=== PATIENT | male | born 1965 | race Caucasian/White ===

== ENCOUNTER 2018-07-28 10:07 | Emergency (ER) | payer SELFPAY ==
[~2018-07-28] VITALS: Ht 177.8 cm; Wt 77.1 kg
[2018-07-28] MEDS ORDERED: LISINOPRIL-HCT1 EAC2 ORAL ×2 (10:21→10:38)
[2018-07-28] MEDS ORDERED: HYDROXYZINE PA100 MG ORAL (10:21)
[2018-07-28] MEDS ORDERED: CATAPRES0.1 MG ORAL (10:21)
[2018-07-28] MEDS ORDERED: TRUVADA1 TAB ORAL (10:21)
[2018-07-28] MEDS ORDERED: ATORVASTATIN CA10 MG ORAL (10:21)
[2018-07-28] MEDS ORDERED: MINOCIN50 MG PO (10:21)
[2018-07-28 10:22] VITALS: BP 142/94
--- NOTE | 2018-07-28 10:35 | Emergency Room Report ---
History of Present Illness General Chief Complaint: Hypertension Source: Patient Present Illness HPI CC: "My blood pressure." History of present illness: Mr. Mccarty is a very pleasant 53-year-old male who is currently in a drug rehabilitation facility. He is concerned his blood pressure has been elevated. Highest blood pressure was 180/124. He is currently taking clonidine 0.1 mg as needed every 6 hours in addition to lisinopril hydrochlorothiazide 20 mg-25 mg twice a day. He is recently stopped taking Xanax 2 mg tablets. He feels that his high blood pressure is due to withdrawal. Intermittent chest pain. He denies any chest pain at this time. He stated that he had mild chest pressure which he attributed to elevated high blood pressure. Nondescript pain. Minimal in severity. No shortness of breath. No headache. No blurred vision. No abdominal pain. No leg pain. Medical conditions include HIV, hypertension, polysubstance abuse ( benzodiazepine and methamphetamine) Family history includes history of stroke Allergies: Coded Allergies: No Known Allergies (Unverified , 07/28/18) Patient History Social History: Reports: drug use Reviewed Nursing Documentation: PMH: Agreed; PSxH: Agreed Nursing Documentation-PM Past Medical History: No History, Except For Hx Hypertension: Yes History Of Psychiatric Problem: Yes - anxiety, drug obuse Review of Systems Constitutional: Denies: fever, malaise Respiratory: Denies: cough Gastrointestinal: Denies: abdominal pain Musculoskeletal: Denies: back pain Skin: Denies: rash All Other Systems: negative except mentioned in HPI Physical Exam Vital Signs Date Time Temp Pulse Resp B/P (MAP) Pulse Ox O2 Delivery O2 Flow Rate FiO2 07/28/18 10:12 97.9 77 20 151/98 99 Room Air 97.9 Sp02 EP Interpretation: reviewed, normal General Appearance: no apparent distress, alert, GCS 15, non-toxic Head: normocephalic, atraumatic Eyes: bilateral eye normal inspection ENT: hearing grossly normal, normal pharynx, no angioedema, normal voice Neck: full range of motion, supple/symm/no masses Respiratory: chest non-tender, lungs clear, normal breath sounds, speaking full sentences Cardiovascular #1: regular rate, rhythm, no edema Gastrointestinal: normal bowel sounds, non tender, soft, non-distended, no guarding, no rebound Rectal: deferred Genitourinary: normal inspection Musculoskeletal: back normal, gait/station normal, normal range of motion, non- tender, calf tenderness Neurologic: alert, oriented x3, responsive, motor strength/tone normal, sensory intact, speech normal Psychiatric: judgement/insight normal, memory normal, mood/affect normal Skin: normal color, no rash, warm/dry, well hydrated Medical Decision Making Diagnostic Impression: Primary Impression: Hypertension ER Course Mr. Zhang is 53 yo male with HTN. Currently symptom free. Suspect HTN is due to drug withdrawal. I have encouraged scheduled use of clonidine. Drug rehab staff member was given these recommendations. Normal EKG. Do not suspect ACS. Dc'd home EKG Diagnostic Results Rate: normal Rhythm: NSR ST Segments: no acute changes Other Impression normal sinus rhythm normal rate normal axis normal intervals no ST elevation no ST-T signs of ischemia rate 70 beats a cristobal Last Vital Signs Date Time Temp Pulse Resp B/P (MAP) Pulse Ox O2 Delivery O2 Flow Rate FiO2 07/28/18 10:12 97.9 77 20 151/98 99 Room Air 97.9 Disposition: HOME, SELF-CARE Edie Aparicio MD Jul 28, 2018 10:35
[2018-07-28 10:45] VITALS: BP 123/72
== END 2018-07-28 10:45 | disposition home or self-care (01) ==
LOC: EMR 10:36
DX: I10 Essential (primary) hypertension (principal)
CPT/HCPCS: 99283